=== PATIENT | female | born 2000 | race Caucasian/White ===

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

== ENCOUNTER 2024-12-23 11:15 | Outpatient (CLI) | payer OTHER, SELFPAY ==
--- OUTSIDE RECORDS SUMMARY | 2024-12-23 14:28 | XMS_ITS | Clinical Summary ---
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 Medical History Medical History Date Comments Asthma Family History Medical History Relation Name Comments Cancer Other Relation Name Status Comments Other Social History Tobacco Use Types Packs/Day Years Used Date Smoking Tobacco: Never Alcohol Use Standard Drinks/Week Comments No 0 (1 standard drink = 0.6 oz pur e alcohol) Personal Safety Answer Date Recorded Getting School Help Needed Not on file 02/14 Comments Unknown Sex and Gender Information Value Date Recorded Sex Assigned at Not on file 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 Gender Identity Not on file Sexual Orientation Not on file Obstetrics History Last Filed Vital Signs Vital Sign Reading Time Taken Comments Blood Pressure 118/82 05/31/2020 2:46 PM CDT Pulse 112 05/31/2020 2:46 PM CDT Temperature 37.1 C (98.8 F) 05/31/2020 2:46 PM CDT Respiratory Rate - - Oxygen Saturation - - Inhaled Oxygen Concentration - - Weight 53.3 kg (117 lb 6.4 oz) 05/31/2020 2:46 P M CDT Height 165.1 cm (5' 5) 05/31/2020 2:46 PM CDT Body Mass Index 19.54 05/31/2020 2:46 PM CDT Plan of Treatment Not on file Insurance [facility] Address: [facility] [id number] [place] [address] Care Teams Extract Mixer Relationship Specialty Start Date End Date Kathy Marcum MD [address] [place] [address] PCP - General 01/31/15
--- OUTSIDE RECORDS SUMMARY | 2024-12-23 14:28 | XMS_ITS | Clinical Summary ---
Author Organization [facility] [employer] Address [address] [place] [address] Care Team Providers Care Hand Filer Balance Wheel Name Role Phone Kathy Marcum MD Primary Care Provider Source Comments [facility] [employer],non-owned Affiliates and Associated Physician Practices is amultiple site organization consisting of ambulatory clinics and hospital sitesin [place], [place], [place] and [place]. This disclosure is being madepursuant to the Care Everywhere program and may not contain all information available regarding this patient. Last updated 17.[facility] [employer] Allergies No known active allergies Medications * Be aware that medications may not be up to date on this document. Alwaysverify current medications with the patient. 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 Gender Identity Not on file Sexual Orientation Not on file Last Filed Vital Signs Vital Sign Reading Time Taken Comments Blood Pressure 102/60 05/04/2019 6:28 PM PHARMACOVIGILANCE SPECIALIST Pulse 99 05/04/2019 6:28 PM PHARMACOVIGILANCE SPECIALIST Temperature 37.2 C (99 F) 05/04/2019 6:28 PM PHARMACOVIGILANCE SPECIALIST Respiratory Rate 16 05/04/2019 6:28 PM PHARMACOVIGILANCE SPECIALIST Oxygen Saturation 98% 05/04/2019 6:28 PM PHARMACOVIGILANCE SPECIALIST Inhaled Oxygen Concentration - - Weight 52.2 kg (115 lb) 05/04/2019 6:28 PM PHARMACOVIGILANCE SPECIALIST Height 162.6 cm (5' 4) 05/04/2019 6:28 PM PHARMACOVIGILANCE SPECIALIST Body Mass Index 19.74 05/04/2019 6:28 PM PHARMACOVIGILANCE SPECIALIST Plan of Treatment Health Maintenance Due Date Last Done Comments HIV SCREENING 2017 HPV VACCINE (1 - 3-dose series) 2017 CHLAMYDIA/GONORRHEA SCREENING 2018 MENINGOCOCCAL (Group B) VACC INE SHARED DECISION-MAKING (1 of 2 - Standard) 2018 HEPATITIS C SCREENING 02/08/2020 DTAP/TDAP/TD VACCINES (1 - Tdap) 2021 HEPATITIS B VACCINE (1 of 3 - 19+ 3-dose series) 2021 DEPRESSION SCREENING 03/04/2024 COVID-19 VACCINE (1 - 2023-2 5 season) 2024 INFLUENZA VACCINE (#1) 2024 ZOSTER VACCINE (1 of 2) 02/13/2052 HIB VACCINE Aged Out No longer eligi ble based on patient's age to complete this topic MENINGOCOCCAL GROUPS A/C/Y/W VACCINE Aged Out No longer eligible b ased on patient's age to complete this topic PNEUMOCOCCAL VACCINE Aged Out No long er eligible based on patient's age to complete this topic Insurance [employer] Care Teams Hand Filer Balance Wheel Relationship Specialty Start Date End Date Kathy Marcum MD [address] [place] [address] [address] [place] [address] PCP - General Pediatrics 09/06/18
[2024-12-29 13:09] LABS: I006-IgE Cockroach, German <0.10 kU/L (Class 0); T006-IgE Cedar, Mountain <0.10 kU/L (Class 0); T007-IgE Oak, White 15.40 kU/L (Class IV); T008-IgE Elm, American 0.10 kU/L (Class 0/I); T015-IgE Ash, White 0.17 kU/L (Class 0/I); T022-IgE Pecan, Hickory 0.56 kU/L (Class II); W001-IgE Ragweed, Short 24.10 kU/L (Class V); W011-IgE Thistle, Russian 0.16 kU/L (Class 0/I); W014-IgE Pigweed, Common <0.10 kU/L (Class 0); W016-IgE Rough Marshelder 1.86 kU/L (Class III)
== END 2024-12-23 11:16 | disposition home or self-care (01) ==
LOC: ANHBWCLAB 11:17
PROVIDERS: PCP Nurse Practitioner Adult Health; Visit Provider Nurse Practitioner Adult Health
DX: L23.9 Allergic contact dermatitis, unspecified cause (principal); J45.909 Unspecified asthma, uncomplicated
CPT/HCPCS: 82785; 86003